=== PATIENT | female | born 1970 | race Caucasian/White ===

== ENCOUNTER → 2020-06-12 | Outpatient (CLI) | payer BC | LOC: RAD 13:11 | DX: M48.07 Spinal stenosis, lumbosacral region (principal); M43.16 Spondylolisthesis, lumbar region ==

== ENCOUNTER → 2020-07-08 | Outpatient (CLI) | payer BC | LOC: MRI 11:54 | DX: M47.812 Spondylosis without myelopathy or radiculopathy, cervical region (principal); G89.29 Other chronic pain; M25.78 Osteophyte, vertebrae; M48.02 Spinal stenosis, cervical region; M47.816 Spondylosis without myelopathy or radiculopathy, lumbar region; M51.37 Other intervertebral disc degeneration, lumbosacral region; Z98.1 Arthrodesis status ==

== ENCOUNTER → 2020-08-15 | Outpatient (CLI) | payer BC ==
[~2020-08-15] MED LIST: ADDERALL XR 2020 MG PO; BACTRIM DS TAB1 EAC1 PO; BUTALB-ACETAMI1 EAC3 PO; BUTALB-ACETAMI1 EACH PO; BUTALBIT-ACETA1 EACH PO; COZAAR100 MG PO; EFFEXOR XR75 MG PO; FISH OIL 1,001000 M3 PO; FLONASE 0.05%50 MCG NARES; GABAPENTIN 100100 MG PO; GLUCOPHAGE XR750 M1 PO; HYDROCHLOROTH12.5 M1 PO; INDOMETHACIN SR75 M1 PO; JANUVIA100 MG PO; LAMOTRIGINE200 M1 PO; LANTUS SUBQ; LEVOTHYROXINE100 MCG PO; MAXALT MLT ODT10 M1 PO; NEURONTIN300 MG PO; OXYBUTYNIN CHLO15 MG PO; OZEMPIC1 MG/0.75 SUBQ; PERCOCET 10-321 EACH PO; PERCOCET 7.5-31 EACH PO; PERPHENAZINE PO; PLAQUENIL200 MG PO; PREDNISONE 5 MG5 M1 PO; PROAIR HFA8.5 GM INH; PROTONIX40 M4 PO; PROVIGIL 200 M200 MG PO; REGLAN10 MG PO; ROBAXIN 750 MG750 MG PO; SENNA PLUS TAB1 EACH PO; SINGULAIR 10 MG10 M1 PO; SYMBICORT80 MCG/4.1 INH; VITAMIN D3125 MCG PO; ZOFRAN4 MG PO
== END ==
LOC: LAB 10:52
DX: Z01.812 Encounter for preprocedural laboratory examination (principal); Z20.828 Contact with and (suspected) exposure to other viral communicable diseases

== ENCOUNTER 2020-08-20 06:10 | Inpatient (IN) | payer BC ==
[2020-08-15 11:18] LABS: ABSOLUTE NEUTROPHILS 9.1 thou/uL (1.4-8.2); BASOPHILS 1.1 % (0.0-2.0); EOSINOPHILS 1.8 % (0.0-3.0); HEMATOCRIT 47.3 % (37.0-47.0); HEMOGLOBIN 15.7 gm/dL (12.0-15.0); LYMPHOCYTES 23.9 % (24.0-44.0); MCH 31.3 pg (26.0-34.0); MCHC 33.2 g/dL (28.0-37.0); MCV 94.4 fL (80.0-100.0); PLATELET COUNT 376 thou/uL (150-400); POLYS 68.2 % (36.0-66.0); RBC 5.02 mil/uL (4.20-5.00); RDW 13.7 % (10.5-14.5); WBC 13.3 thou/uL (4.0-11.0)
[2020-08-15 11:24] LABS: URINE BILIRUBIN NEGATIVE (Negative); URINE BLOOD 3+ (Negative); URINE CLARITY HAZY; URINE COLOR YELLOW; URINE GLUCOSE-RANDOM* TRACE (Negative); URINE KETONES NEGATIVE (Negative); URINE LEUKOCYTES-REFLEX NEGATIVE (Negative); URINE NITRITE-REFLEX NEGATIVE (Negative); URINE PROTEIN (DIPSTICK) NEGATIVE (Negative); URINE SPECIFIC GRAVITY >= 1.030 (1.005-1.035); URINE UROBILINOGEN 0.2 E.U./dl (0.2-1.0)
[2020-08-15 11:31] LABS: SQUAMOUS >10 Many /LPF (0-3); URINE WBC-REFLEX None Seen /HPF (0-5)
[2020-08-15 11:32] LABS: BACTERIA-REFLEX None Seen /HPF (None Seen); CRYSTALS None Seen /LPF (None Seen); URINE RBC >20 Many /HPF (0-2)
[2020-08-15 11:44] LABS: ALBUMIN 3.6 g/dL (3.4-5.0); MAGNESIUM 1.6 mg/dL (1.8-2.4); POTASSIUM 3.9 mmol/L (3.5-5.1); TOTAL BILIRUBIN 0.2 mg/dL (0.2-1.0); TOTAL PROTEIN 7.1 g/dL (6.4-8.2)
[2020-08-15 11:45] LABS: APTT 24.8 Seconds (24.5-32.8)
--- NOTE | 2020-08-15 14:19 | EKG ---
[facility] [place] [address] ELECTROCARDIOGRAM REPORT Name: GRAY CHAN Room #: PRE IN M.R.#: [id number] Admission: Attend Phys: Heri Carreno MD Discharge: Date of : 68 Report #: [id number] THIS REPORT FOR: cc: LATANYA JOHNSON DO Physician not on staff Dom Barkley MD [facility] ~ THIS REPORT FOR: //name// [facility] Test Date: 2020-08-15 Test Time: 11:14:15 Pat Name: GRAY CHAN Department: Room: Gender: F Clinical Rehabilitation Specialist: BRANDEN : 1970 Requested By: Heri Carreno Order Number: [id number] : Dom Barkley Measurements Intervals [place] Rate: 98 P: -29 MI: 139 QRS: 36 QRSD: 97 T: 59 QT: 369 QTc: 472 Interpretive Statements Sinus rhythm No previous ECG available for comparison Electronically Signed On 08-15-2020 14:19:26 ANIMAL BIOLOGIST by Dom Barkley [email or web address] <ELECTRONICALLY SIGNED> By: Dom Barkley MD, FACC 08/15/20 1419 1114 13 Dom Barkley MD, FACC /EPI
[2020-08-16 00:06] LABS: GLYCOHEMOGLOBIN (HGB A1C) 6.8 % (4.8-5.6)
[~2020-08-20] VITALS: Ht 157.5 cm; Wt 122.0 kg
--- NOTE | ~2020-08-20 | O ---
[facility] [place] [address] OPERATIVE REPORT Name: GRAY CHAN Room #: 150-1 ADM IN M.R.#: [id number] Admission: 08/20/20 Attend Phys: Heri Carreno MD Discharge: Date of : 68 Report #: [id number] THIS REPORT FOR: cc: LATANYA JOHNSON DO Physician not on staff Heri Carreno MD ~ CC: LATANYA Carreno Physician staff DATE OF SERVICE: 08/20/2020 PREPROCEDURAL DIAGNOSES: Degenerative disk disease, herniated nucleus pulposus stenosis at L5-S1, previous fusion L3-L5, L5-S1 spinal stenosis with radiculopathy. POSTPROCEDURAL DIAGNOSES: Degenerative disk disease, herniated nucleus pulposus stenosis at L5-S1, previous fusion L3-L5, L5-S1 spinal stenosis with radiculopathy. PROCEDURES: Remove L3-L5 instrumentation, exploration of L3-L5 fusion, reinsertion and extension of instrumentation L3-S1 with posterior segmental instrumentation, posterior posterolateral fusion L3-L4, posterior posterolateral fusion L4-L5, posterior posterolateral fusion L5-S1, TLIF L5-S1, insertion of interbody prosthesis L5-S1, bilateral laminectomy with partial facetectomy with neural foraminotomy to address spinal stenosis and herniated nucleus pulposus L5, redo and herniated disk free fragment at L5-S1; laminectomy with partial facetectomy and neural foraminotomy redo S1 to address stenosis and herniated nucleus pulposus, local bone graft harvest synthetic bone; fluoroscopy. SURGEON: Heri Carreno MD FRICKERTRON CHECKER SURGEON: Dr. Bonita Ponce. ANESTHESIA: General via endotracheal tube. INDICATIONS: The patient has had intractable back and bilateral leg pain refractory to multimodality conservative management. She has requested we proceed with operative intervention. She understands the risks of surgery to be , DVT, pulmonary embolism, paraplegia, loss of bowel and bladder function, loss of sexual function, loss of the ability to ambulate, loss of the ability to sense her legs. Dural leak, spinal headache, infection and again she requests we proceed. DESCRIPTION OF PROCEDURE: The patient was brought to the operating room and administered general anesthesia via endotracheal tube. Lower extremities were [address] [address] OPERATIVE REPORT Name: GRAY CHAN Room #: 150-1 [facility] ..#: [id number] Admission: 08/20/20 Attend Phys: Heri Carreno MD Discharge: Date of : 68 Report #: [id number] treated with TERRI hose and intermittent compression stockings. The patient was positioned on the Ken table in the prone position with all bony prominences padded appropriately. A Pastrana catheter had been placed. She had received perioperative antibiotics and in the prone position, her back was defatted with alcohol and visualized under fluoroscopy. The fluoroscopy was used to rivas the instrumentation at L3, L4, L5 and the pedicles of S1 were marked to facilitate the incision. We then sterilely prepped and draped, infiltrated the skin with 0.5% Marcaine, 1:200,000 epinephrine and sharp dissection was continued down through the skin, the subcutaneous tissues to the level of the deep fascia. At the level of the deep fascia, the tips of the spinous processes were subperiosteally exposed and after a subperiosteal dissection of L2 and a small remnant of L3 cephalad and a small remnant of S1 caudad, the intervening level consisted of skeletonizing the instrumentation and carefully dissecting and debulking the scar covering the dural sac from L3-S1. Care was taken not to inadvertently dissect too deep and incur a dural laceration. We eventually skeletonized the instrumentation and removed the L3-L5 instrumentation. We explored the fusion and elected to augment the fusions and reinsert the instrumentation at L3, L4 and L5. With the instrumentation decorticated posterolaterally and augmented with synthetic bone that had been reconstituted with the patient's own blood rich in stem cells, we packed the posterolateral gutters to augment the L3-L4 and L4-L5 levels. At L5-S1, we decorticated after we had inserted new screws in S1 level. The S1 level, the instrumentation was inserted by decorticating at the base of the sacral ala at the junction of the facet, inserting a pedicle probe and driving it to a depth of 40 mm in the direction dictated by previously obtained x-rays with clamps affixed to the spinous processes perpendicular to the floor that gave us a relative pedicle direction. We withdrew the pedicle probe, palpated the hole to ensure cortical integrity in all 4 quadrants and then we inserted the bone wax for hemostatic tamponade and markers. With the markers in place, we were able to then check in AP and lateral x-ray and found that the markers were in superb position. Therefore, we removed the marker, tapped the holes, palpated to ensure cortical integrity, decorticated posterolaterally on the sacral ala and extended the posterolateral fusion to the L5 level. We performed a posterolateral fusion at L5-S1. We then turned our attention to reinserting the screws, augmenting posterolaterally L3-L4, L4-L5 and new L5-S1 on the opposite side, inserted the screws, measured, cut and contoured the rods and locked them into place. We applied slight distraction at the L5-S1 redo level. We locked all fittings with the exception of leaving the lower screws loosely applied to the char. This was to allow distraction of the interspace at L5-S1. We then began the decompression. The patient was stenotic and we performed a bilateral redo laminectomy with partial facetectomy and neural foraminotomy in redo fashion, the scarred dura from the undersurface of the lamina before resection with a 3 mm Kerrison. As we carried the dissection more laterally, the partial facetectomies ensued followed by the neural foraminotomies. With the neural foraminal decompressions complete, we chose the left side to perform the TLIF and I would say that the laminectomies performed were far in excess that needed [facility] [address] [place] [address] OPERATIVE REPORT Name: GRAY CHAN Room #: 150-1 ADM IN [facility].#: [id number] Admission: 08/20/20 Attend Phys: Heri Carreno MD Discharge: Date of : 68 Report #: [id number] for the TLIF that were performed for the purposes of decompression of the spinal stenosis and neural foraminal stenosis. We then made an annular window on the left. We mobilized the scarred dura, protected it with a nerve root retractor, made an annular window, ran the disk space with straight up and down biting pituitaries, ran it was dianne up to a size 8 and removed all the disk and debris with the pituitaries. Then, we inserted the patient's local bone; 5 mL of the patient's own local bone into the disk space. We then inserted the cage and expanded the cage to restore the L5-S1 disk height. We then compressed and locked the lower screws, rechecked the neural foramen and found them to be superb. We were able to decorticate the right posterolateral facet. We then irrigated the wound with a liter of antibiotic-containing solution. We packed the right posterolateral facet with the patient's own bone representing local bone graft as we had in the interspace. This bone was derived from the decompression. All the bone had been meticulously cleaned, morcellized and saved. With the TLIF complete, posterolateral fusions complete, the previous levels of questionable fusion augmented at L3-L4 and L4-L5, we then applied a transverse connector, obtained meticulous hemostasis, placed a gram of vancomycin in the wound and placed a deep drain. We placed pledgets thrombin-soaked Gelfoam over the spinal canal. We closed the deep fascial layer with 0 Ethibond in eozrar-vg-snxco interrupted fashion, deep subQ with 0 Vicryl, superficial subQ with 2-0 Vicryl and the skin with stainless steel bharathi, was dressed with Xeroform, sterile dressing, sponges and bioclusive and the patient was being transported to the recovery room for closer neurovascular observation and discharge for when stable. Final blood loss was about 150 mL. There was no specimen. The patient was physiologically stable throughout. There were no technical misadventures and the final x-rays looked superb. By: [id number] Heri Carreno MD /nt
[~2020-08-20 06:10] MED LIST changes: -BACTRIM DS TAB1 EAC1 PO; -BUTALB-ACETAMI1 EAC3 PO; -BUTALB-ACETAMI1 EACH PO; -GABAPENTIN 100100 MG PO; -PERCOCET 10-321 EACH PO; -PERCOCET 7.5-31 EACH PO; -PREDNISONE 5 MG5 M1 PO; -ROBAXIN 750 MG750 MG PO
[2020-08-20 08:03] VITALS: BP 147/89
[2020-08-20 18:56] VITALS: BP 138/61
--- NOTE | 2020-08-20 20:03 | NUR ---
PATIENT ADMITTED FROM OR WITH LUMBAR DECOMPRESSION WITH FUSION + TRANSFORAMINAL INTERBODY FUSION HARDWARE REMOVAL SPINE. PATIENT ALERT AND ORIENTED X 4. PATIENT HAD NAUSEA AND MIGRAINE UPON ARRIVAL TO THE UNIT. RAIN/KNURLING MACHINE OPERATOR SAW THE PATIENT AND ORDERED MEDS NEEDED. PUBLIC RELATIONS ACCOUNT EXECUTIVE PUMP STARTED PER JENARO/JESS. MIDLINE INCISION WITH AQUACELL DRESSING AND HEMOVAC DRAIN. KNEE HIGH TERRI HOSE, SCD'S IN PLACE. RIGHT HAND IV IN PLACE. PATIENT ASSISTED TO URINATE ON PAD, UNABLE TO TOLERATE BEDPAIN AT THIS TIME. CPAP MACHINE AT NIGHT. REPORT GIVEN TO EASTON/RN.
--- NOTE | 2020-08-20 23:33 | NUR ---
ASSESSED AT START OF SHIFT. PT A&OX4. RATES PAIN 2/10. ACCOUNTING COORDINATOR PUMP INTACT AND EDUCATION PROVIDED. PT DENIES NAUSEA AND VOMITING. BSG CHECKED AND INSULIN PROVIDED. NIGHT TIME SNACKS AN DPO FLUIDS GIVEN. IV INTACT AND FLUIDS INFUSING. LUMBAR DRESSING C/D/I. HEMOVAC INTACT WITH SANGUINEOUS 125CC OUTPUT. PT ON 2L OF 02 AND CAPNEA MONITOR. HOME CPAP WITH PT. FALL PREC IN PLACE AND CALL LIGHT AT REACH WILL CONT WITH POC TILL EOS.
[2020-08-21 04:23] VITALS: BP 107/60
[2020-08-21 06:35] LABS: ABSOLUTE NEUTROPHILS 8.6 thou/uL (1.4-8.2); BASOPHILS 0.4 % (0.0-2.0); EOSINOPHILS 1.9 % (0.0-3.0); HEMATOCRIT 39.2 % (37.0-47.0); HEMOGLOBIN 12.9 gm/dL (12.0-15.0); LYMPHOCYTES 21.7 % (24.0-44.0); MCHC 32.8 g/dL (28.0-37.0); MCV 94.4 fL (80.0-100.0); MONOCYTES 6.9 % (1.0-8.0); PLATELET COUNT 272 thou/uL (150-400); POLYS 69.1 % (36.0-66.0); RBC 4.15 mil/uL (4.20-5.00); RDW 13.6 % (10.5-14.5); WBC 12.4 thou/uL (4.0-11.0)
[2020-08-21 06:38] LABS: CALCIUM 7.9 mg/dL (8.5-10.1); CREATININE 0.6 mg/dL (0.6-1.0); MAGNESIUM 2.1 mg/dL (1.8-2.4); POTASSIUM 3.1 mmol/L (3.5-5.1)
[2020-08-21 07:15] VITALS: BP 123/77
--- NOTE | 2020-08-21 11:17 | NUR ---
ASSESSMENT: CM REVIEWED CHART AND MET WITH PATIENT. PT IS ALERT AND ORIENTED X4. PT IS S/P LUMBAR FUSION LAMINECTOMY. PT REPORTS LIVING IN A DUPLEX ALONE. PT REPORTS HAVING TWO STEPS WITH NO HANDRAIL TO ENTER. PT REPORTS NOT HAVING ANY STEPS ONCE INSIDE. PT REPORTS SHE HAS A CANE AND WALKER AT HOME TO USE FOR AMBULATION. PT ALSO HAS A CPAP. PT REPORTS SHE HAS HAD [facility] IN THE PAST AND REQUESTED THAT SHE CAN USE THEM AGAIN ONCE DISCHARGED. CM FAXED REFERRAL TO [facility]. PT IS TO WORK WITH THERAPY. CM WILL CONTINUE TO FOLLOW TO ASSIST NEEDED.
--- NOTE | 2020-08-21 15:41 | NUR ---
Assumed care of pt. at 0700. Pt. was calm and cooperative. Pt. complained of pain throughout the day. Fall precautions in place.
[2020-08-21 16:05] VITALS: BP 140/90
[2020-08-21 20:25] VITALS: BP 119/49
--- NOTE | 2020-08-22 04:05 | NUR ---
ASSESSED AT START OF SHIFT. PT A&OX4. IV INTACT AND SL. C/O PAIN MANAGED BY PO PAIN MEDS. BSG CHECKED AND INSULIN PROVIDED. PT UP WITH ASSISTX1 TO THE BATHROOM. CPAP AT NIGHT. ANTICIPATING D/C TOMORROW. FALL PREC IN PLACE
[2020-08-22 04:32] VITALS: BP 132/75
[2020-08-22 05:45] LABS: ABSOLUTE NEUTROPHILS 5.4 thou/uL (1.4-8.2); BASOPHILS 0.3 % (0.0-2.0); EOSINOPHILS 2.8 % (0.0-3.0); HEMATOCRIT 37.3 % (37.0-47.0); HEMOGLOBIN 12.5 gm/dL (12.0-15.0); MCH 31.7 pg (26.0-34.0); MCHC 33.6 g/dL (28.0-37.0); MCV 94.3 fL (80.0-100.0); MONOCYTES 7.6 % (1.0-8.0); PLATELET COUNT 245 thou/uL (150-400); POLYS 61.3 % (36.0-66.0); RBC 3.96 mil/uL (4.20-5.00); RDW 13.3 % (10.5-14.5); WBC 8.8 thou/uL (4.0-11.0)
[2020-08-22 05:53] LABS: CREATININE 0.7 mg/dL (0.6-1.0); POTASSIUM 3.8 mmol/L (3.5-5.1)
[2020-08-22 07:41] VITALS: BP 111/77
[2020-08-22] MEDS ORDERED: ROBAXIN 750 MG750 MG PO (09:41)
[2020-08-22] MEDS ORDERED: PERCOCET 10-321 EACH PO (09:41)
--- NOTE | 2020-08-22 10:16 | NUR ---
ASSUMED CARE AT 0700. PATIENT IS ALERT AND ORIENTED X4. PATIENT IS UP WITH P.T. AND WALKER TO CHAIR FOR MEALS. PATIENT IS UP WITH SBA. LUNGS ARE CLEAR AND DEMINISHED. PATIENT CONTINUES ON RESPIRATORY TX. PATIFLYNN HAS S.L. IN HER RIGHT HAND. IV SITE WITHOUT REDNESS OR SWELLING. DRESSING TO HER LOWER BACK IS DRY AND INTACT. FALL AND SAFETY PROTOCOLS IN PLACE. C/O PAIN IN HER LOWER BACK. MEDICATED WITH PRN PAIN MED. CONTINUES TO PROGRESS TOWARDS D/C GOALS. PLAN D/C LATER TODAY WITH H.H.N./PT/OT. WILL CONTINUE TO MONITER.
[2020-08-22 10:20] VITALS: BP 111/77
--- NOTE | 2020-08-22 10:39 | NUR ---
Nutrition: Assessed pt d/t BMI of 49.2 (extreme obesity class 3); PMHx of T2DM, HTN, anxiety, depression, gastroparesis, asthma - admitted d/t lumbar discectomy. Pt eating well and with good appetite. PO intakes 25-100% on carb controlled diabetic diet, noted hA1c at 6.8 and allowed to have liberalized Regular diet. Given BG POC [phone] since admit and PMHx, would recommend modifying pt's diet to a carb controlled heart heathy diet to better fit needs. Otherwise considered low nutrition risk, will f/u per protocol. and diet was liberali in EMR. Recommend modifying diet t
[2020-08-22 10:41] VITALS: BP 111/77
--- NOTE | 2020-08-22 11:27 | NUR ---
PT GIVEN D/C INSTRUCTIONS AND SCRIPTS. PATIENT D/C'D TO MEDICAL MALL ENTRANCE VIA W/C WITH SCIRPTS , BELONGINGS AND D/C INSTRUCTIONS.
--- NOTE | 2020-08-22 12:57 | NUR ---
ON-GOING ASSESSMENT: PT HAS ORDERS TO DISCHARGE HOME TODAY AND REQUESTING HOME HEALTH [facility]OUGH [facility]. CM SPOKE WITH [facility] REFERRAL WAS SENT YESTERDAY AND THEY CAN ACCEPT HER. CM FAXED [facility] PAPERWORK AND CONFIRMED THEY RECEIVED IT. PT HAD NO FURTHER NEEDS FROM CM AT DISCHARGE.
[2020-08-22] MEDS ORDERED: GABAPENTIN 100100 MG PO (22:14)
[2020-08-23] MEDS ORDERED: BACTRIM DS TAB1 EAC1 PO (20:32)
[2020-08-23] MEDS ORDERED: PREDNISONE 5 MG5 M1 PO (20:32)
== END 2020-08-22 11:28 | disposition home health service (06) | DRG 460 ==
LOC: TBA 06:10 → 4S 06:10 → PRE 09:07 → 4S 13:28 → PRE 13:56 → 4S 08-22 11:28
PROVIDERS: Nurse Practitioner; ATTEND Hospitalist
PROC: 00NY0ZZ Release Lumbar Spinal Cord, Open Approach (ICD-10-PCS; principal; 2020-08-20)
PROC: 0SG30AJ Fusion of Lumbosacral Joint with Interbody Fusion Device, Posterior Approach, Anterior Column, Open Approach (ICD-10-PCS; principal; 2020-08-20)
PROC: 01NB0ZZ Release Lumbar Nerve, Open Approach (ICD-10-PCS; principal; 2020-08-20)
DX: M51.16 Intervertebral disc disorders with radiculopathy, lumbar region (principal); Z68.42 Body mass index [BMI] 45.0-49.9, adult; M48.061 Spinal stenosis, lumbar region without neurogenic claudication; F32.9 Major depressive disorder, single episode, unspecified; G43.909 Migraine, unspecified, not intractable, without status migrainosus; I10 Essential (primary) hypertension; K21.9 Gastro-esophageal reflux disease without esophagitis; G89.29 Other chronic pain; M54.9 Dorsalgia, unspecified; F17.210 Nicotine dependence, cigarettes, uncomplicated; J45.909 Unspecified asthma, uncomplicated; E03.9 Hypothyroidism, unspecified; E11.43 Type 2 diabetes mellitus with diabetic autonomic (poly)neuropathy; K31.84 Gastroparesis; E66.9 Obesity, unspecified; Z88.1 Allergy status to other antibiotic agents; Z88.0 Allergy status to penicillin; Z88.8 Allergy status to other drugs, medicaments and biological substances; Z90.49 Acquired absence of other specified parts of digestive tract; Z79.4 Long term (current) use of insulin
CPT/HCPCS: 10102; 50010; 50101; 50402; 50850; 51412; 51878; 56524; 56529; 58248; 58251; 5827; 58283; 58284; 58334; 62110; 62900; 70005

== ENCOUNTER 2020-08-22 20:39 | Emergency (ER) | payer BC ==
[~2020-08-22] VITALS: Ht 167.6 cm; Wt 122.5 kg
[~2020-08-22 20:39] MED LIST changes: +PERCOCET 10-321 EACH PO; +ROBAXIN 750 MG750 MG PO
[2020-08-22] MEDS ORDERED: GABAPENTIN 100100 MG PO (22:14)
[2020-08-22 22:39] VITALS: BP 172/91
[2020-08-23] MEDS ORDERED: PREDNISONE 5 MG5 M1 PO (20:32)
[2020-08-23] MEDS ORDERED: BACTRIM DS TAB1 EAC1 PO (20:32)
== END 2020-08-22 22:46 | disposition home or self-care (01) ==
LOC: ER 20:39
DX: M54.16 Radiculopathy, lumbar region (principal); R11.0 Nausea; F31.9 Bipolar disorder, unspecified; G43.909 Migraine, unspecified, not intractable, without status migrainosus; I10 Essential (primary) hypertension; K21.9 Gastro-esophageal reflux disease without esophagitis; F41.9 Anxiety disorder, unspecified; E11.40 Type 2 diabetes mellitus with diabetic neuropathy, unspecified; Z98.890 Other specified postprocedural states; Z90.49 Acquired absence of other specified parts of digestive tract; Z79.899 Other long term (current) drug therapy; Z79.4 Long term (current) use of insulin; Z88.8 Allergy status to other drugs, medicaments and biological substances; Z88.1 Allergy status to other antibiotic agents; Z88.0 Allergy status to penicillin

== ENCOUNTER 2020-08-23 20:13 | Emergency (ER) | payer BC ==
[~2020-08-23] VITALS: Ht 157.5 cm; Wt 118.8 kg
[~2020-08-23 20:13] MED LIST changes: +GABAPENTIN 100100 MG PO
[2020-08-23] MEDS ORDERED: PREDNISONE 5 MG5 M1 PO (20:32)
[2020-08-23] MEDS ORDERED: BACTRIM DS TAB1 EAC1 PO (20:32)
[2020-08-23 22:41] VITALS: BP 124/73
== END 2020-08-23 22:43 | disposition home or self-care (01) ==
LOC: ER 20:13
DX: G89.18 Other acute postprocedural pain (principal); M54.5 Low back pain; I10 Essential (primary) hypertension; E11.9 Type 2 diabetes mellitus without complications; G43.909 Migraine, unspecified, not intractable, without status migrainosus; K21.9 Gastro-esophageal reflux disease without esophagitis; Z90.49 Acquired absence of other specified parts of digestive tract; Z79.899 Other long term (current) drug therapy; Z79.4 Long term (current) use of insulin; Z88.0 Allergy status to penicillin; Z88.1 Allergy status to other antibiotic agents; Z88.8 Allergy status to other drugs, medicaments and biological substances

== ENCOUNTER 2020-08-25 17:29 | Emergency (ER) | payer BC ==
[~2020-08-25] VITALS: Ht 157.5 cm; Wt 118.8 kg
[~2020-08-25 17:29] MED LIST changes: +BACTRIM DS TAB1 EAC1 PO; +PREDNISONE 5 MG5 M1 PO
[2020-08-25] MEDS ORDERED: BACTRIM DS TAB1 EAC1 PO (18:29)
[2020-08-25 19:46] LABS: HEMATOCRIT 37.2 % (37.0-47.0); HEMOGLOBIN 12.8 gm/dL (12.0-15.0); MCH 32.1 pg (26.0-34.0); MCHC 34.4 g/dL (28.0-37.0); MCV 93.5 fL (80.0-100.0); PLATELET COUNT 322 thou/uL (150-400); RBC 3.99 mil/uL (4.20-5.00); RDW 13.4 % (10.5-14.5); WBC 16.5 thou/uL (4.0-11.0)
[2020-08-25 20:16] LABS: CALCIUM 9.1 mg/dL (8.5-10.1); CREATININE 1.1 mg/dL (0.6-1.0); POTASSIUM 4.3 mmol/L (3.5-5.1)
[2020-08-25 20:46] LABS: ABSOLUTE NEUTROPHILS 9.6 thou/uL (1.4-8.2); ATYPICAL LYMPHS 2 %; METAMYELOCYTES 1 %
[2020-08-25] MEDS ORDERED: PERCOCET 7.5-31 EACH PO (22:02)
[2020-08-25 22:30] VITALS: BP 122/76
== END 2020-08-25 22:30 | disposition home or self-care (01) ==
LOC: ER 17:29
PROVIDERS: Emergency Medicine
DX: M54.5 Low back pain (principal); I10 Essential (primary) hypertension; E11.9 Type 2 diabetes mellitus without complications; K21.9 Gastro-esophageal reflux disease without esophagitis; G43.909 Migraine, unspecified, not intractable, without status migrainosus; Z90.49 Acquired absence of other specified parts of digestive tract; Z87.891 Personal history of nicotine dependence; Z79.4 Long term (current) use of insulin; Z79.899 Other long term (current) drug therapy; Z88.0 Allergy status to penicillin; Z88.1 Allergy status to other antibiotic agents; Z88.8 Allergy status to other drugs, medicaments and biological substances

== ENCOUNTER 2020-08-28 09:28 | Inpatient (IN) | payer BC ==
[~2020-08-28] VITALS: Ht 157.5 cm; Wt 118.8 kg
[~2020-08-28 09:28] MED LIST changes: -BUTALB-ACETAMI1 EAC3 PO; -BUTALB-ACETAMI1 EACH PO; -PREDNISONE 10 M10 MG PO
[2020-08-28 09:30] VITALS: BP 149/91
[2020-08-28 10:14] LABS: ABSOLUTE NEUTROPHILS 12.4 thou/uL (1.4-8.2); BASOPHILS 0.5 % (0.0-2.0); HEMATOCRIT 40.1 % (37.0-47.0); HEMOGLOBIN 13.3 gm/dL (12.0-15.0); LYMPHOCYTES 12.4 % (24.0-44.0); MCH 31.2 pg (26.0-34.0); MCHC 33.1 g/dL (28.0-37.0); MCV 94.1 fL (80.0-100.0); POLYS 81.1 % (36.0-66.0); RBC 4.26 mil/uL (4.20-5.00); RDW 13.6 % (10.5-14.5); WBC 15.3 thou/uL (4.0-11.0)
[2020-08-28 10:17] LABS: MAGNESIUM 1.8 mg/dL (1.8-2.4); POTASSIUM 4.6 mmol/L (3.5-5.1)
[2020-08-28 10:22] LABS: PLATELET COUNT 447 thou/uL (150-400)
[2020-08-28 11:35] VITALS: BP 109/46
[2020-08-28 11:43] LABS: URINE BILIRUBIN NEGATIVE (Negative); URINE BLOOD NEGATIVE (Negative); URINE CLARITY CLEAR; URINE COLOR YELLOW; URINE GLUCOSE-RANDOM* NEGATIVE (Negative); URINE KETONES TRACE (Negative); URINE LEUKOCYTES-REFLEX NEGATIVE (Negative); URINE NITRITE-REFLEX NEGATIVE (Negative); URINE PROTEIN (DIPSTICK) TRACE (Negative); URINE SPECIFIC GRAVITY >= 1.030 (1.005-1.035); URINE UROBILINOGEN 0.2 E.U./dl (0.2-1.0)
[2020-08-28 12:23] VITALS: BP 96/52
--- NOTE | 2020-08-28 15:37 | NUR ---
ASSESSMENT: CM REVIEWED CHART AND MET WITH PT. PT IS ALERT AND ORIENTED X4. [facility]. PT HAS HAD MULTIPLE TRIPS TO THE ER SINCE AND IS SHOWING TO HAVE A POST OP HEMATOMA. PT REPORTS SHE WAS BEING SEEN BY [facility] BUT REPORTS SHE WAS NOT HAPPY WITH THEM AND DOES NOT WANT TO USE THEM AND REQUEST ANOTHER HH IF NEEDED AT DISCHARE (NO PREFERENCE). PT REPORTS SHE LIVES IN A DUPLEX ALONE. PT HAS TWO STEPS WITH NO HANDRAILS TO ENTER. PT REPORTS ONCE INSIDE SHE HAS NO STEPS SHE HAS TO USE. PT HAS A CANE AND A WALKER AT HOME. PT REPORTS HAVING A CPAP. 5N HAS BEEN CONSULTED TO SEE PATIENT WELL ORTHOPEDIC SURGEON. AWAITING TO [facility] EVAL AND PT/OT TO SEE IF SHE IS A CANIDATE FOR 5N. CONTACT [facility] AT [phone] TO FOLLOW UP IF NEEDED. IF PT CANNOT GO TO [facility] AND IF SHE IS NEEDING HH REFERRAL WAS SENT TO [facility] WHO REPORTS THEY SERVICE HER AREA AND ACCEPT HER INSURANCE. CM WILL CONTINUE TO FOLLOW TO ASSIST NEEDED.
--- NOTE | 2020-08-28 16:10 | NUR ---
ASSUMED PT CARE UPON ADMISSION. PT COMPLAINING OF BACK PAIN FROM SURGERY, BUT MAIN PAIN CONCERN IS REGARDING THE RIGHT BUTTOCK WITH PAIN RADIATING DOWN THE LEG. PT A&OX4, VSS. PT REPORTING CONSTIPATION FOR 10 DAYS, GIVEN MEDS TO RELIEVE CONSTIPATION. PT LAYING ON LEFT SIDE AND REPORTS THIS IS THE MOST COMFORTABLE POSITION FOR HER. PT COOPERATIVE WITH STAFF AND CALLS APPROPRIATELY WHEN NEEDED.
[2020-08-28 16:47] VITALS: BP 131/70
[2020-08-28 19:35] VITALS: BP 121/47
[2020-08-28] MEDS ORDERED: BUTALB-ACETAMI1 EAC3 PO (21:26)
[2020-08-28] MEDS ORDERED: BUTALB-ACETAMI1 EACH PO (21:27)
[2020-08-28 21:53] VITALS: BP 121/47
[2020-08-29 05:36] VITALS: BP 154/61
--- NOTE | 2020-08-29 05:56 | NUR ---
PT AOX4. PT REPORTS PAIN IN BACK, RIGHT HIP, AND HEAD. PT DENIES SOB WHILE ON ROOM AIR. PT RECEIVING PRN PO OXYCODONE Q4HR AND PRN IV DILAUDID Q4HR WITH PRN PO APAP Q4HR AVAILABLE. PT AMBULATING WITH WALKER AND STANDBY ASSIST TO BEDSIDE COMMODE. PT TOLERATING PO INTAKE OF FLUIDS AND CLEAR LIQUID DIET WITHOUT ISSUE. PT REPORTS NAUSEA WITHOUT EMESIS. PT RECEIVING SCHEDULED IV REGLAN AND PRN IV ZOFRAN Q4HR. PT NOTIFIED STAFF REPORTING CONTINUED HEADACHE/MIGRAINE. ONCJERONIMO TOWER HOIST OPERATOR NOTIFIED, EMAR UPDATED. PT RECEIVING PRN PO BUTABITAL/APAP/CAFFEINE Q4HR. PT ALSO NOTIFIED STAFF REGARDING FEELING SORE IN LEFT HIP DUE TO CONSTANT POSITIONING ON LEFT SIDE DUE TO PAIN IN RIGHT HIP AND BACK THUS PREVENTING FREQUENT REPOSITIONING. PT REQUESTING LOW AIR LOSS MATTRESS, ONCJREONIMO TOWER HOIST OPERATOR NOTIFIED RECEIVED ORDERS FOR LOW AIR LOSS MATTRESS. PT ENCOURAGED TO NOTIFY STAFF FOR ALL NEEDS, CALL LIGHT WITHIN REACH, BED IN LOWEST POSITION, BED ALARM ON, FREQUENT MONITORING WILL CONTINUE.
[2020-08-29 08:05] VITALS: BP 141/99
[2020-08-29 09:23] LABS: HEMATOCRIT 39.6 % (37.0-47.0); HEMOGLOBIN 13.3 gm/dL (12.0-15.0); MCH 31.8 pg (26.0-34.0); MCHC 33.5 g/dL (28.0-37.0); MCV 94.8 fL (80.0-100.0); RBC 4.18 mil/uL (4.20-5.00); RDW 13.5 % (10.5-14.5); WBC 9.6 thou/uL (4.0-11.0)
[2020-08-29 09:33] LABS: CALCIUM 8.4 mg/dL (8.5-10.1); CREATININE 0.8 mg/dL (0.6-1.0); MAGNESIUM 2.6 mg/dL (1.8-2.4); POTASSIUM 4.6 mmol/L (3.5-5.1)
[2020-08-29 15:15] VITALS: BP 142/82
[2020-08-29 19:40] VITALS: BP 109/66
[2020-08-30 03:20] VITALS: BP 142/74
--- NOTE | 2020-08-30 05:07 | NUR ---
PATIENT ALERT AND ORIENTED X4. IVF INFUSING W/O COMPLICATION. MEDICATED FOR PAIN X2 AT TIME OF NOTE. ALSO C/O MIGRANE HEADACHE AND GIVEN MED WITH GOOD RELIEF. ALSO GIVEN ZOFRAN WHICH RELIEVED NAUSEA. ABLE TO SLEEP MOST OF THE NIGHT. UP TO BATHROOM WITH ONE ASSIST, PATIENT HAD MEDIUM STOOL. RESTING QUIETLY, WILL MONITOR.
--- NOTE | 2020-08-30 05:46 | NUR ---
AT BEGINNING OF SHIFT PATIENT WAS UNHAPPY STATED "I THOUGHT I WAS NOT GOING TO HAVE A NURSE" THIS NURSE EXPLAINED THAT UNFORTUNATELY OUR ASSIGNMENTS CHANGED AFTER WE HAD GOTTEN REPORT FOR THE NIGHT AND WE LOST A NURSE TO ANOTHER FLOOR. THEREFORE, I AM RUNNING LATE SEEING ALL MY PATIENTS AND PASSING MEDICATIONS. PATIENT ASKED IF THERE WAS A FISH AND WILDLIFE WARDEN HERE AND I STATED THAT THE HOUSE SUP. WAS [facility]. PATIENT ASKED IF THERE WAS SOMEONE ABOVE HER AND I STATED NO, NOT TONIGHT SHE HAS THE HOSPITAL CHARGE. THIS NURSE CALLED [facility] AND SHE STATED THAT SHE WOULD PUT IT ON HER LIST. WHEN SHE CAME UP PATIENT WAS ASLEEP. THIS NURSE TOLD PATIENT [facility] COULD NOT WAKE HER UP AND ASKED IF SHE WOULD LIKE HER TO RETURN. PATIENT DID NOT ANSWER. WILL MONITOR.
[2020-08-30 05:50] LABS: HEMATOCRIT 38.9 % (37.0-47.0); HEMOGLOBIN 12.9 gm/dL (12.0-15.0); MCH 31.7 pg (26.0-34.0); MCHC 33.2 g/dL (28.0-37.0); MCV 95.5 fL (80.0-100.0); RBC 4.07 mil/uL (4.20-5.00); RDW 13.8 % (10.5-14.5); WBC 9.8 thou/uL (4.0-11.0)
[2020-08-30 05:56] LABS: CALCIUM 8.1 mg/dL (8.5-10.1); CREATININE 0.8 mg/dL (0.6-1.0); MAGNESIUM 2.4 mg/dL (1.8-2.4); POTASSIUM 4.9 mmol/L (3.5-5.1)
[2020-08-30] MEDS ORDERED: PREDNISONE 10 M10 MG PO (09:09)
[2020-08-30 09:46] VITALS: BP 142/76
--- NOTE | 2020-08-30 11:27 | NUR ---
CARE TEAM INDICATED THAT PT IS MEDICALLY STABLE TO DISHCARGE HOME THIS DAY. CASE TEAM INDICATED THAT PT IS SAFE TO DC HOME TO SELF CARE. PT DID MUCH BETTER WITH PT. NO OTHER CM INTERVENTION INDICATED. CASE CLOSED.
--- NOTE | 2020-08-30 11:46 | NUR ---
assumed care at 0700. pt is a&o x4. pt complains of pain on hip and back. PT/OT went well. Pt has left AC IV and it is intact and shows no signs of redness or swelling. fall precaution. call light within reach. Distant heart rhythms. pt denies soa, vomitting, diarrhea. bm: last night 08/29/20. pt complains of pain and oxycodone was given to pt and notice some pain relief. pt denies constipation. Fluids were d/c by doctor. pt will be d/c later today. IV will be removed before discharged
[2020-08-30 11:50] VITALS: BP 142/76
== END 2020-08-30 13:40 | disposition home or self-care (01) | DRG 552 ==
LOC: ER 09:28 → 4S 11:26 → EROBS 11:26 → 4S 11:38
PROVIDERS: Emergency Medicine; ADMIT Internal Medicine; ATTEND Internal Medicine
PROC: 5A09357 Assistance with Respiratory Ventilation, Less than 24 Consecutive Hours, Continuous Positive Airway Pressure (ICD-10-PCS; principal; 2020-08-29)
DX: M54.9 Dorsalgia, unspecified (principal); K56.7 Ileus, unspecified; L76.34 Postprocedural seroma of skin and subcutaneous tissue following other procedure; Z68.42 Body mass index [BMI] 45.0-49.9, adult; F32.9 Major depressive disorder, single episode, unspecified; F41.9 Anxiety disorder, unspecified; G43.909 Migraine, unspecified, not intractable, without status migrainosus; E66.01 Morbid (severe) obesity due to excess calories; I10 Essential (primary) hypertension; K21.9 Gastro-esophageal reflux disease without esophagitis; K59.00 Constipation, unspecified; Z20.828 Contact with and (suspected) exposure to other viral communicable diseases; J45.909 Unspecified asthma, uncomplicated; E11.43 Type 2 diabetes mellitus with diabetic autonomic (poly)neuropathy; K31.84 Gastroparesis; Z90.49 Acquired absence of other specified parts of digestive tract; Z79.4 Long term (current) use of insulin; Z88.0 Allergy status to penicillin; Z88.8 Allergy status to other drugs, medicaments and biological substances
CPT/HCPCS: 10195

== ENCOUNTER → 2020-08-28 | Outpatient (CLI) | payer BC ==
[~2020-08-28] MED LIST changes: +BUTALB-ACETAMI1 EAC3 PO; +BUTALB-ACETAMI1 EACH PO; +PERCOCET 7.5-31 EACH PO; +PREDNISONE 10 M10 MG PO
== END ==
LOC: RAD 07:59
DX: M43.26 Fusion of spine, lumbar region (principal); Z98.890 Other specified postprocedural states

== ENCOUNTER → 2020-09-02 | Outpatient (CLI) | payer BC ==
[~2020-09-02] MED LIST changes: +BUTALB-ACETAMI1 EAC3 PO; +BUTALB-ACETAMI1 EACH PO; +PREDNISONE 10 M10 MG PO
== END ==
LOC: RAD 09:01
DX: M47.816 Spondylosis without myelopathy or radiculopathy, lumbar region (principal); M41.86 Other forms of scoliosis, lumbar region; M43.26 Fusion of spine, lumbar region; Z98.890 Other specified postprocedural states

== ENCOUNTER → 2020-09-30 | Outpatient (CLI) | payer BC | LOC: RAD 09:33 | PROVIDERS: ATTEND Physician Assistant | DX: M43.27 Fusion of spine, lumbosacral region (principal); M48.061 Spinal stenosis, lumbar region without neurogenic claudication ==